=== PATIENT | female | born 1950 | race Caucasian/White ===

== ENCOUNTER → 2016-04-29 | Outpatient (CLI) | payer OTHER | LOC: CIMAGING 08:42 | PROVIDERS: ATTEND Family Medicine | DX: N20.0 Calculus of kidney (principal) | CPT/HCPCS: 76770-PO ==

== ENCOUNTER → 2016-11-08 | Outpatient (CLI) | payer OTHER | LOC: FIMAGING 12:47 | PROVIDERS: ATTEND Family Medicine | DX: Z12.31 Encounter for screening mammogram for malignant neoplasm of breast (principal); R92.8 Other abnormal and inconclusive findings on diagnostic imaging of breast; S20.02XA Contusion of left breast, initial encounter; X58.XXXA Exposure to other specified factors, initial encounter; Z79.01 Long term (current) use of anticoagulants ==

== ENCOUNTER 2016-11-11 07:51 | Day surgery (SDC) | payer OTHER ==
[2016-11-11] MEDS ORDERED: diphenhydrAMINE 25 MG CAP PO ONE ×2 (07:53→09:13)
[2016-11-11] MEDS ORDERED: NS 1,000 ML IV ONE (07:53)
[2016-11-11] MEDS ORDERED: ASPIRIN EC 325 MG TAB PO ONE ×2 (07:53→09:13)
[2016-11-11] MEDS ORDERED: DIAZEPAM 5 MG TAB PO ONE (07:53)
[2016-11-11] MEDS ORDERED: FAMOTIDINE 20 MG TAB PO ONE (07:53)
--- NOTE | 2016-11-11 09:11 | CPEKG ---
Heart Rate: 85 RR Interval: 706 QRSD Interval: 78 QT Interval: 392 QTC Interval: 467 QRS Marion: 2 T Wave Marion: 47 EKG Severity - ABNORMAL ECG - EKG Impression: ATRIAL FIBRILLATION EKG Impression: Unchanged from previous EKG 06/06/2015 Electronically Signed By: Leandro Manriquez 11-Nov-2016 10:13:51
[2016-11-11] MEDS ORDERED: FAMOTIDINE 20 MG TAB ONE (09:13)
[2016-11-11] MEDS ORDERED: DIAZEPAM 5 MG TAB ONE (09:14)
[2016-11-11 09:33] LABS: % IMMATURE GRANULYOCYTES 0.6 % (0.0-1.1); ABSOLUTE IMMATURE GRANULOCYTES 0.05 10^3/uL (0.00-0.10); ADD DIFF? NO; ADD MORPH? NO; ADD SCAN? NO; ATYPICAL LYMPHOCYTE FLAG 10 (0-99); FRAGMENT RBC FLAG 0 (0-99); HEMATOCRIT 40.3 % (38.0-47.0); HEMOGLOBIN 14.1 g/dL (12.6-16.3); LEFT SHIFT FLG 0 (0-99); LIPEMIA HEMOLYSIS FLAG 90 (0-99); MEAN CELL HEMOGLOBIN 30.7 pg (27.9-34.1); MEAN CELL VOLUME 87.6 fL (81.5-99.8); MEAN PLATELET VOLUME 10.7 fL (8.7-11.7); PLATELET CLUMPS FLAG 0 (0-99); PLATELET COUNT 225 10^3/uL (150-400); RED CELL DISTRIBUTION WIDTH 12.5 % (11.5-15.2)
[2016-11-11 09:38] LABS: INR 1.04 (0.83-1.16); PROTIME(PATIENT) 13.5 SEC (12.0-15.0)
--- NOTE | 2016-11-11 09:42 | PDGENHP ---
History & Physical Chief Complaint: PADRON History of Present Illness: See Dr. Latham's office note from 10/02. Pt is 66 y/ o F w/ risk factors for CAD. Seen for PADRON. Lexiscan Nuc stress positive for anterior perfusion abnormality. Needs cath to r/o CAD prior to biopsy and possible surgery for breast mass. Pertinent Past, Social, Family History: Chronic A-fib, hypertension, and type II DM. Relevant Physical Exam: A & O x 3. Lungs CTA bilat. Irreg, irreg rhythm. No murmur. Negative Misha test right wrist. no edema.
--- NOTE | 2016-11-11 09:45 | PDPROPOC ---
Sedation Plan of Care Sedation Plan of Care: vital signs stable, mental status noted, patient educated of risks, benefits, alternatives, patient can tolerate sedation ASA Classification: ASA 2 Planned drugs: fentanyl, midazolam Mallampati Score: Class 1 Mallampati Reference Image: Patient passed 3-3-2 rule?: Yes
[2016-11-11 09:50] LABS: ANION GAP 11 mEq/L (8-16); CALCIUM 9.7 mg/dL (8.5-10.4); CARBON DIOXIDE 24 mEq/l (22-31); CHLORIDE 103 mEq/L (97-110); CHOLESTEROL 143 mg/dL (140-220); CHOLESTEROL/HDL RATIO 3.67 RATIO (1.00-4.44); CREATININE 0.9 mg/dL (0.6-1.0); GLOMERULAR FILTRATION RATE > 60; GLUCOSE 151 mg/dL (70-100); HIGH DENSITY LIPOPROTEIN 39 mg/dL (40-85); LDL/HDL RATIO 1.72 RATIO (1.00-3.22); LOW DENSITY LIPOPROTEIN 67 mg/dL (80-100); MAGNESIUM 1.6 mg/dL (1.6-2.3); NON-HIGH DENSITY LIPOPROTEIN 104 mg/dL (90-129); POTASSIUM 4.1 mEq/L (3.5-5.2); SODIUM 138 mEq/L (134-144); TRIGLYCERIDE 186 mg/dL (35-135); VERY LOW DENSITY LIPOPROTEINS 37 mg/dL (8-25)
[2016-11-11] MEDS ORDERED: LIDOCAINE 1% 300 MG/30 ML SDV ONE (09:57)
[2016-11-11] MEDS ORDERED: MIDAZOLAM 2 MG/2 ML VIAL ONE (09:58)
[2016-11-11] MEDS ORDERED: VERAPAMIL 5 MG/2 ML VIAL ONE (09:58)
[2016-11-11] MEDS ORDERED: HEPARIN 10,000 UNIT/10 ML MDV ONE (09:58)
[2016-11-11] MEDS ORDERED: fentaNYL 100 MCG/2 ML INJ ONE (09:58)
[2016-11-11] MEDS ORDERED: IOPAMIDOL (ISOVUE-370) 150 ML BTL IV ONE (09:59)
[2016-11-11] MEDS ORDERED: ATROPINE SULFATE 1 MG/10 ML SYR IVP PRN (11:52)
[2016-11-11] MEDS ORDERED: ONDANSETRON 4 MG/2 ML VIAL IVP PRN (11:52)
--- NOTE | 2016-11-11 11:58 | PDDXCAT ---
Diagnostic Cath Note - . Date: 11/11/16 [employer] Operator: Ajay Indication: other (Dyspnea on exertion, risk factors for CAD, and abnormal nuclear stress test.) Patient Problems: Problems Problem Status Onset Atrial fibrillation Acute
--- NOTE | 2016-11-11 12:02 | PDDXCAT ---
Diagnostic Cath Note - . Date: 11/11/16 Care Aid: Ajay Indication: other (Dyspnea on exertion, risk factors for CAD, and abnormal nuclear stress test.) - Procedure Access: right groin Procedure: left heart catheterization, coronary angiography, left ventriculogram - Materials Left Heart Cath size: 6F Left Heart Cath materials: standard multipack (JL4, JR4, pigtail) - Findings-Left Heart Catheterization LM: Normal. LAD: Mild irrregularities; first diagonal with moderate diffuse disease up to 50 -60%. LCX: Dominant with mild irregularities. RCA: Small, non-dominant with mild to moderate irregularities. EDP: 23 mmHg LVEF: 45% Wall motion: Global hypokinesis. Complications: None Estimated blood loss: <50ml Closure method: manual pressure Assessment: 1) Mildly reduced LV systolic function. 2) Mgf-vntu-fctdtalj coronary atherosclerosis. Plan: Medical management/risk factor control. Patient Problems: Problems Problem Status Onset Atrial fibrillation Acute
== END 2016-11-11 16:38 | disposition home or self-care (01) ==
LOC: FCATH 07:51
PROVIDERS: ATTEND Internal Medicine Interventional Cardiology
PROC: B2151ZZ Fluoroscopy of Left Heart using Low Osmolar Contrast (ICD-10-PCS; principal; 2016-11-11)
PROC: 4A023N7 Measurement of Cardiac Sampling and Pressure, Left Heart, Percutaneous Approach (ICD-10-PCS; principal; 2016-11-11)
PROC: B2111ZZ Fluoroscopy of Multiple Coronary Arteries using Low Osmolar Contrast (ICD-10-PCS; principal; 2016-11-11)
DX: R06.09 Other forms of dyspnea (principal); I65.23 Occlusion and stenosis of bilateral carotid arteries; Z95.828 Presence of other vascular implants and grafts
CPT/HCPCS: J0461; J1644; J2250; J3010; Q9967

== ENCOUNTER 2016-12-04 07:51 | Observation (INO) | payer OTHER ==
[2016-12-04] MEDS ORDERED: LIDOCAINE 1% 2 ML INJ ID PRN (08:18)
[2016-12-04] MEDS ORDERED: LR 1,000 ML IV ONE (08:18)
--- NOTE | 2016-12-04 08:58 | PDANEPAE ---
<Joseluis Davidson - Last Filed: 12/04/16 08:54> ANE History of Present Illness 66 year old female w/ PMHx of CAD (recent heart cath with non-occlusive CAD, LVgram with EF = 45%), PVD (CTA with known complete occlusion of left internal carotid, patent right carotid stent), previous CVA (while undergoing carotid endarterectomy), Atrial fibrillation, IDDM, Obesity and breast cancer presents for bilateral mastectomy. ANE Past Medical History - Cardiovascular History Hx Hypertension: Yes Hx Arrhythmias: Yes Hx Chest Pain: No Hx Coronary Artery / Peripheral Vascular Disease: Yes Hx CHF / Valvular Disease: No Hx Palpitations: No Cardiovascular History Comment: htn. cad. afib - Pulmonary History Hx COPD: No Hx Asthma/Reactive Airway Disease: No Hx Recent Upper Respiratory Infection: No Hx Oxygen in Use at Home: No Hx Sleep Apnea: No Sleep Apnea Screening Result - Last Documented: Positive Pulmonary History Comment: tim triggers only - Neurologic History Hx Cerebrovascular Accident: Yes Hx Seizures: No Hx Dementia: No Neurologic History Comment: stroke during carotid surgery in 1999- no residuals - Endocrine History Hx Diabetes: Yes Hypothyroid: No Hyperthyroid: No Obesity: yes Endocrine History Comment: type 2 - Renal History Hx Renal Disorders: Yes Renal History Comment: hx of uti's - Liver History Hx Hepatic Disorders: No - Neurological & Psychiatric Hx Hx Neurological and Psychiatric Disorders: No - Cancer History Hx Cancer: Yes Cancer History Comment: current breast ca - Congenital Disorder History Hx Congenital Disorders: No - GI History Hx Gastrointestinal Disorders: No - Other Health History Other Health History: wears glasses - Chronic Pain History Chronic Pain: No - Surgical History 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 ANE Review of Systems Review of Systems: - Exercise capacity Exercise capacity: <4 METS METS (RN): 3 METS ANE Patient History - Allergies Allergies/Adverse Reactions: OSVALDO Inhibitors Allergy (Verified 11/27/16 11:12) Other-Enter Comments codeine Allergy (Verified 11/27/16 11:12) Other-Enter Comments ertapenem [From Invanz] Allergy (Verified 11/27/16 11:12) Hives latex Allergy (Verified 11/27/16 11:12) Other-Enter Comments morphine Allergy (Verified 11/27/16 11:12) Other-Enter Comments Penicillins Allergy (Verified 12/04/16 09:27) povidone-iodine [From Betadine] Allergy (Verified 11/27/16 11:12) Rash soap [From Betadine] Allergy (Verified 11/27/16 11:12) Rash sulfamethoxazole [From Bactrim] Allergy (Verified 11/27/16 11:12) Hives Tetanus Vaccines and Toxoid Allergy (Verified 11/27/16 11:12) Unknown trimethoprim [From Bactrim] Allergy (Verified 11/27/16 11:12) Hives ADHESIVES Allergy (Uncoded 11/27/16 11:12) Rash - Home Medications Home medications: home medication list seen and reviewed Home Medications: Aspirin [Aspirin 81mg (*)] 81 mg PO DAILY 11/11/16 [Last Taken 11/27/16] Atorvastatin Calcium [Lipitor 10 mg (*)] 10 mg PO HS 11/11/16 [Last Taken 1 Day Ago ~12/03/16] Hydrochlorothiazide [HCTZ (*)] 25 mg PO DAILY 11/11/16 [Last Taken 12/04/16 07: 00] Insulin Glargine [Lantus 100 UNITS/ML (*)] 50 units SC 11/11/16 [Last Taken 12/03/16 21:00] Insulin Lispro [humALOG LISPRO 100 units/ml (*)] 20 unit SC DAILY@18 11/11/16 [ Last Taken 12/03/16 17:00] Losartan Potassium [Cozaar 50 mg (*)] 50 mg PO DAILY 11/11/16 [Last Taken 07:00] Metoprolol Tartrate [Lopressor 100 mg (*)] 100 mg PO BID 11/11/16 [Last Taken 07:00] Hines-3 Fatty Acids [Fish Oil 1000 mg (*)] 1,000 mg PO BID 11/11/16 [Last Taken 11/27/16] Rivaroxaban [Xarelto] 20 mg PO DAILY 11/11/16 [Last Taken 11/30/16] metFORMIN HCL [Glucophage 500 mg (*)] 1,000 mg PO BIDMEAL 11/11/16 [Last Taken 12/02/16] Cinnamon 11/27/16 [Last Taken 11/27/16] - NPO status NPO Status: no food or drink >8 hours NPO Since - Liquids (Date): 12/03/16 NPO Since - Liquids (Time): 22:30 NPO Since - Solids (Date): 12/03/16 NPO Since - Solids (Time): 19:00 - Anes Hx Anes Hx: no prior problems - Smoking Hx Smoking Status: Former smoker - Family Anes Hx Family Hx Anesthesia Complications: none ANE Labs/Vital Signs - Vital Signs Vital Signs: reviewed preoperatively; see RN documention for details Blood Pressure: 124/75 Heart Rate: 101 Respiratory Rate: 18 O2 Sat (%): 95 Height: 173 cm Weight: 108.9 kg ANE Anesthesia Plan Anesthesia Plan: general endotracheal anesthesia Total IV Anesthesia: No <Tomasz Medel - Last Filed: 12/04/16 10:25> WING Review of Systems Review of Systems: ANE Anesthesia Plan Anesthesia Plan: GA w LMA
--- NOTE | 2016-12-04 09:17 | PDHPUP ---
History & Physical Update H&P update statement: This history and physical update is based on an assessment of the patient which was completed after admission or registration (within 24 hours), but prior to the surgery/procedure.
[2016-12-04] MEDS ORDERED: ceFAZolin 2 GM/DEXTROSE 100 ML IV ONE (09:21)
[2016-12-04] MEDS ORDERED: ONDANSETRON 4 MG/2 ML VIAL IVP PRN ×2 (10:22→13:02)
[2016-12-04] MEDS ORDERED: HYDROmorphONE/DILAUDID 1 MG/ML INJ IVP PRN (10:22)
[2016-12-04] MEDS ORDERED: ALBUTEROL 3 ML DEYVIAL IH PRN (10:22)
[2016-12-04] MEDS ORDERED: fentaNYL 100 MCG/2 ML INJ IVP PRN (10:22)
[2016-12-04] MEDS ORDERED: NALOXONE HCL 0.4 MG/ML INJ IVP PRN (10:22)
[2016-12-04] MEDS ORDERED: HYDROCODONE/APAP 5/325 TAB PO PRN (10:22)
[2016-12-04] MEDS ORDERED: LIDOCAINE 1% 300 MG/30 ML SDV ONE ×2 (10:30→10:44)
[2016-12-04] MEDS ORDERED: BUPIVACAINE 0.5% 30 ML SDV ONE ×2 (10:31→10:45)
[2016-12-04] MEDS ORDERED: PROPOFOL 200 MG/20 ML VIAL ONE (10:51)
[2016-12-04] MEDS ORDERED: fentaNYL 250 MCG/5 ML INJ ONE (11:02)
[2016-12-04] MEDS ORDERED: ONDANSETRON 4 MG/2 ML VIAL ONE (11:07)
[2016-12-04] MEDS ORDERED: LIDOCAINE 2% 5 ML SDV ONE (11:07)
[2016-12-04] MEDS ORDERED: METOCLOPRAMIDE 10 MG/2 ML VIAL ONE (11:07)
[2016-12-04] MEDS ORDERED: ACETAMINOPHEN 325 MG TAB PO PRN (13:02)
--- NOTE | 2016-12-04 13:07 | POSTANESTH ---
Post Anesthetic Evaluation Cardiovascular Status: Normal, Stable Respiratory Status: Normal, Stable Level of Consciousness/Mental Status: Can Participate in Eval, Mildly Sleepy, Arousable Pain Control: Adequate, Prn Tx Ordered Nausea/Vomiting Control: Adequate, Prn Tx Ordered
--- NOTE | 2016-12-04 13:08 | POSTOPPROG ---
Post Op Note Date of Operation: 12/04/16 Surgeon: Alvarado Bates Syrup Blender: poly Anesthesiologist: Gianfranco Anesthesia: LMA Pre-op Diagnosis: L breast cancer lower outer Post-op Diagnosis: same Procedure: Bilateral mastectomy , L SLNBx Inf/Abcess present in the surg proc area at time of surgery?: No Depth: Deep Incisional (Fascial) EBL: Minimal Drains: Jc Pena Specimen(s): Right breast Left breast L SLN
[2016-12-04] MEDS ORDERED: LR 1,000 ML IV SCH (13:30)
[2016-12-04] MEDS: HYDROmorphONE/DILAUDID 1 MG/ML INJ IVP PRN ×3 (14:10→23:07)
[2016-12-04] MEDS ORDERED: INSULIN LISPRO 100 UNIT/ML SC SCH (18:00)
[2016-12-04] MEDS: KETOROLAC 15 MG/1 ML SDV IVP SCH (18:29)
[2016-12-04] MEDS: metFORMIN HCL 500 MG TAB PO SCH (18:30)
[2016-12-04] MEDS ORDERED: METOPROLOL TARTRATE 100 MG TAB PO SCH (21:00)
[2016-12-04] MEDS ORDERED: INSULIN GLARGINE 100 UNITS/ML SYRINGE SC SCH (21:00)
[2016-12-04] MEDS ORDERED: ATORVASTATIN CALCIUM 10 MG TAB PO SCH (21:00)
[2016-12-04] MEDS: METOPROLOL TARTRATE 50 MG TAB PO SCH (23:40)
[2016-12-05] MEDS: KETOROLAC 15 MG/1 ML SDV IVP SCH ×3 (00:31→11:07)
[2016-12-05 04:58] VITALS: TEMP 97.9
[2016-12-05] MEDS: HYDROmorphONE/DILAUDID 1 MG/ML INJ IVP PRN (05:08)
[2016-12-05 07:54] VITALS: RESP 18
[2016-12-05] MEDS: METOPROLOL TARTRATE 50 MG TAB PO SCH (08:07)
[2016-12-05] MEDS: metFORMIN HCL 500 MG TAB PO SCH (08:07)
[2016-12-05] MEDS ORDERED: LOSARTAN POTASSIUM 50 MG TAB PO SCH (09:00)
[2016-12-05] MEDS ORDERED: METOPROLOL TARTRATE 50 MG TAB PO SCH (09:00)
[2016-12-05] MEDS ORDERED: HYDROCHLOROTHIAZIDE 25 MG TAB PO SCH (09:00)
[2016-12-05] MEDS: HYDROCODONE/APAP 5/325 TAB PO PRN ×2 (11:07→13:18)
[2016-12-05 11:50] VITALS: BP 104/67; PULSE 109; O2SAT 95
--- NOTE | 2016-12-05 15:09 | ASDISCHSUM ---
Discharge Information Plan Status:Home with No Needs Medically Cleared to Leave:12/05/2016 Discharge Date:12/05/2016 01:30 PM CM D/C Disposition:Home, Routine, Self-Care ADT D/C Disposition:Home, Routine, Self-Care Projected Discharge Date:12/05/2016 01:30 PM Transportation at D/C:Family Discharge Delay Reason: Follow-Up Date:12/05/2016 01:30 PM Discharge Slot: Final Diagnosis: Placement Information Patient Contact Information Contact Name:SOLEDAD Relationship: Address:[address] [place] [address] Work Phone: Vimal:FRANDY Salas Phone: [facility]/Zip Code:[place] [address] Email: Financial Information Financial Class:Medicare Advantage Plans Primary Plan Desc:[facility] [employer] Primary Plan Number:[id number] Secondary Plan Desc:[facility] Secondary Plan Number:[id number] Assessment Information [facility] CM Progress Note CM Note CM Note Notes: Pt ready for DC today. She has no DC needs. Date Signed: 12/05/2016 03:08 PM Electronically Signed By:Roshni Sanderson LCSW Intervention Information Intervention Type:*Incorrect Registration Date of Service:12/04/2016 01:16 PM Patient Type:Inpatient Staff Member:VINCENZO Bardales, Qing Hours: Discipline: Severity: Comment: Intervention Type:*FISHER-Signed Date of Service:12/05/2016 09:19 AM Patient Type:Observation Staff Member:Karine Vick Hours: Discipline: Severity: Comment:
--- NOTE | 2016-12-06 13:47 | GOP ---
[f rep st] OPERATIVE REPORT DATE OF OPERATION: 12/04/2016 SURGEON: Alvarado Bates MD ANESTHESIOLOGIST: Tomasz Medel DO. PREOPERATIVE DIAGNOSIS: Left breast cancer. POSTOPERATIVE DIAGNOSIS: Left breast cancer. PROCEDURE PERFORMED: Bilateral mastectomy with left sentinel lymph node biopsy. FINDINGS: SPECIMENS: Right breast, long stitch lateral; short stitch superior, to permanent pathology. Left b reast, long stitch lateral; short stitch superior, to permanent pathology. [place] node, hot with f ibrotic reaction around it, sent to pathology as well. DESCRIPTION OF PROCEDURE: The patient was brought into the operating room. After induction of endot estrada anesthesia in a supine position, her chest was prepped with chlorhexidine and draped sterilel y. Time-out procedure was performed according to institutional standards. The tumor was on the left breast, in the lower outer quadrant, and it was included in the incision wide. An incision was made on the right side, similar to the left, to allow for symmetric surgery. The right side was initiate d, as it was the clean side, and elliptical incision is made to include the nipple-areolar complex an d the upper aspect of the inner mammary fold. Electrocautery was used to dissect the breast tissue a way from Rajeev ligament all the way up to the clavicle superiorly, down to the inframammary fold inf eriorly, medially to the sternal border, and laterally to the axilla. A similar dissection was don ed out on the left side. Both areas were made hemostatic. On the left side, gamma probe was then us ed to identify the sentinel node from within the breast incision. After excising sentinel node and s urrounding tissue, hemostasis was then assured. 15-Guyanese channel drains were placed on either side through separate stab incisions. Wounds were closed using 3-0 Vicryl and 4-0 Monocryl. Dermabond wa s applied. The patient was awakened, extubated, and taken to recovery room in stable condition. No immediate complications. /[id number]/MODL
== END 2016-12-05 13:30 | disposition home or self-care (01) ==
LOC: F3E 07:51 → INTOOBSV 07:51 → F1N 13:56
PROVIDERS: ADMIT Surgery; ATTEND Surgery
PROC: 0HTV0ZZ Resection of Bilateral Breast, Open Approach (ICD-10-PCS; principal; 2016-12-04 10:15)
PROC: 07T60ZZ Resection of Left Axillary Lymphatic, Open Approach (ICD-10-PCS; principal; 2016-12-04 10:15)
PROC: 3E0W3KZ Introduction of Other Diagnostic Substance into Lymphatics, Percutaneous Approach (ICD-10-PCS; 2016-12-04 10:15)
DX: C50.512 Malignant neoplasm of lower-outer quadrant of left female breast (principal); I48.2 Chronic atrial fibrillation; S20.02XD Contusion of left breast, subsequent encounter; I25.10 Atherosclerotic heart disease of native coronary artery without angina pectoris; I65.21 Occlusion and stenosis of right carotid artery; E66.09 Other obesity due to excess calories; Z68.36 Body mass index [BMI] 36.0-36.9, adult; E11.59 Type 2 diabetes mellitus with other circulatory complications; E11.65 Type 2 diabetes mellitus with hyperglycemia; E11.69 Type 2 diabetes mellitus with other specified complication; E78.2 Mixed hyperlipidemia; R31.21 Asymptomatic microscopic hematuria; Z79.4 Long term (current) use of insulin; Z79.01 Long term (current) use of anticoagulants; Z86.73 Personal history of transient ischemic attack (TIA), and cerebral infarction without residual deficits; Z80.3 Family history of malignant neoplasm of breast
CPT/HCPCS: 19303; 38525; 38792; A9520; G0378; J1170; J1815; J1885; J2405; J2704; J2765; J3010

== ENCOUNTER → 2016-12-23 | Outpatient (CLI) | payer OTHER | LOC: FIMAGING 08:25 | PROVIDERS: ATTEND Family Medicine | DX: Z13.820 Encounter for screening for osteoporosis (principal); M85.80 Other specified disorders of bone density and structure, unspecified site ==